=== PATIENT | female | born 1970 ===

== ENCOUNTER 2016-10-16 05:30 | Emergency (ER) | payer BC ==
[2016-10-16] MEDS ORDERED: Sodium Chloride 0.9% 10 ML Syringe FLUSH PRN (05:55)
[2016-10-16] MEDS ORDERED: Aspirin 81 MG Tab.Chew PO ONE (05:55)
--- NOTE | 2016-10-16 06:54 | EDM.PDOC ---
ED HPI GENERAL MEDICAL PROBLEM - General Chief Complaint: Chest Pain Stated Complaint: CHEST PAIN Time Seen by Provider: 10/16/16 05:43 Source of Information: Reports: Patient History Limitations: Reports: No Limitations - History of Present Illness INITIAL COMMENTS - FREE TEXT/NARRATIVE: The patient presents with left sided chest pain that started yesterday. It comes and goes. The pain is sharp at times. She has no fever, cough, congestion or runny nose. She has no history of [place]. She does not smoke. Last night she got a little short of breath with it and she got sweaty. She says the pain is mild now. Onset: Gradual Duration: Day(s): (Yesterday) Location: Reports: Chest Quality: Reports: Pressure Severity: Mild Improves with: Reports: None Worsens with: Reports: None Associated Symptoms: Reports: Chest Pain. Denies: Cough, Fever/Chills, Nausea/ Vomiting, Shortness of Breath Left Chest Pain Score (Numeric/FACES): 5 - Related Data Allergies Allergy/AdvReac Type Severity Reaction Status Date / Time alcohol Allergy Swelling Verified 10/16/16 05:39 Iodinated Contrast Media - Allergy Itching Verified 10/16/16 05:39 Oral and [Iodinated Contrast Media - IV Dye] Home Meds: Home Meds Lisinopril 20 mg PO DAILY 08/30/15 [History] metFORMIN HCl [Metformin HCl] 1,000 mg PO BID 08/30/15 [History] Dapagliflozin Propanediol [Farxiga] 10 mg PO DAILY 09/14/15 [History] Melatonin 80 mg PO BEDTIME 09/14/15 [History] Docusate Sodium [Colace] 100 mg PO BID cap 09/17/15 [Rx] Ibuprofen [Motrin] 600 mg PO Q4H PRN #30 tablet 09/17/15 [Rx] traMADol [Ultram] 50 mg PO ONCALL PRN 10/16/16 [History] Past Medical History HEENT History: Reports: Impaired Vision Other HEENT History: Wears glasses Cardiovascular History: Reports: Hypertension Other Respiratory History: Severe snoring Gastrointestinal History: Reports: GERD, Irritable Bowel Syndrome Other Gastrointestinal History: inflammed pancreas Genitourinary History: Reports: Urinary Incontinence Musculoskeletal History: Reports: Fracture Other Musculoskeletal History: hardware L arm Neurological History: Reports: Concussion Psychiatric History: Reports: Anxiety Endocrine/Metabolic History: Reports: Diabetes, Type II Other Hematologic History: elevated WBC Dermatologic History: Reports: Psoriasis - Past Surgical History GI Surgical History: Reports: Cholecystectomy Social & Family History - Tobacco Use Smoking Status *Q: Never Smoker Second Hand Smoke Exposure: No - Recreational Drug Use Recreational Drug Use: No ED ROS GENERAL - Review of Systems Review Of Systems: See Below Constitutional: Reports: No Symptoms HEENT: Reports: No Symptoms Respiratory: Reports: Shortness of Breath (Last night but non now) Cardiovascular: Reports: Chest Pain Endocrine: Reports: No Symptoms GI/Abdominal: Reports: No Symptoms : Reports: No Symptoms Musculoskeletal: Reports: No Symptoms ED EXAM, GENERAL - Physical Exam Exam: See Below Exam Limited By: No Limitations General Appearance: Alert, No Apparent Distress Ears: Normal External Exam Nose: Normal Inspection Head: Atraumatic, Normocephalic Neck: Normal Inspection Respiratory/Chest: No Respiratory Distress, Lungs Clear, Normal Breath Sounds Cardiovascular: Regular Rate, Rhythm, No Edema, No Murmur GI/Abdominal: Soft, Non-Tender, No Organomegaly, No Mass Back Exam: Normal Inspection Extremities: Normal Inspection EKG INTERPRETATION EKG Date: 10/16/16 Time: 05:36 Rhythm: NSR Rate (beats/min): 83 [place]: normal P-wave: present QRS: normal ST-T: normal QT: normal Course - Vital Signs Last Recorded V/S: Last Vital Signs Temp 97.2 F 10/16/16 05:41 Pulse 83 10/16/16 05:41 Resp 14 10/16/16 05:41 BP 111/82 10/16/16 05:41 Pulse Ox 98 10/16/16 05:41 - Orders/Labs/Meds Orders: Active Orders 24 hr Category Date Time Status Cardiac Monitoring [RC] . DIRECTED Care 10/16/16 05:55 Active EKG Documentation Completion [RC] STAT Care 10/16/16 05:56 Active Oxygen Therapy [RC] PRN Care 10/16/16 05:55 Active Peripheral IV Care [RC] . DIRECTED Care 10/16/16 05:56 Active Chest 1V Frontal [CR] Stat Exams 10/16/16 05:56 Taken Sodium Chloride 0.9% [Saline Flush] Med 10/16/16 05:55 Active 10 ml FLUSH ASDIRECTED PRN Peripheral IV Insertion Adult [OM.PC] Stat Oth 10/16/16 05:55 Ordered Medication Orders Sodium Chloride (Saline Flush) 10 ml FLUSH ASDIRECTED PRN PRN Reason: Keep Vein Open Last Admin: 10/16/16 06:00 Dose: 10 ml Labs: Laboratory Tests 10/16/16 10/16/16 Range/Units 05:45 05:45 WBC 13.09 H (3.98-10.04) K/mm3 RBC 4.91 (3.98-5.22) M/mm3 Hgb 14.8 (11.2-15.7) gm/L Hct 44.3 (34.1-44.9) % MCV 90.2 (79.4-94.8) fl MCH 30.1 (25.6-32.2) pg MCHC 33.4 (32.2-35.5) g/dl RDW Std Deviation 44.6 (36.4-46.3) fL Plt Count 393 H (182-369) K/mm3 MPV 9.4 (9.4-12.3) fl Neut % (Auto) 53.2 (34.0-71.1) % Lymph % (Auto) 37.1 (19.3-51.7) % [place] % (Auto) 7.6 (4.7-12.5) % Eos % (Auto) 1.5 (0.7-5.8) Baso % (Auto) 0.4 (0.1-1.2) % Neut # (Auto) 6.97 H (1.56-6.13) K/mm3 Lymph # (Auto) 4.86 H (1.18-3.74) K/mm3 Bucks # (Auto) 0.99 H (0.24-0.36) K/mm3 Eos # (Auto) 0.19 (0.04-0.36) K/mm3 Baso # (Auto) 0.05 (0.01-0.08) K/mm3 Sodium 137 (136-145) mEq/L Potassium 4.2 (3.5-5.1) mEq/L Chloride 103 (98-107) mEq/L Carbon Dioxide 25 (21-32) mEq/L Anion Gap 13.2 (5-15) BUN 9 (7-18) mg/dL Creatinine 0.6 (0.55-1.02) mg/dL Est Cr Clr Drug Dosing 97.95 mL/min Estimated GFR (MDRD) > 60 (>60) mL/min BUN/Creatinine Ratio 15.0 (14-18) Glucose 174 H (74-106) mg/dL Calcium 8.7 (8.5-10.1) mg/dL Total Bilirubin 0.5 (0.2-1.0) mg/dL AST 40 H (15-37) U/L ALT 91 H (14-59) U/L Alkaline Phosphatase 103 (46-116) U/L Troponin I < 0.017 (0.00-0.056) ng/mL Total Protein 7.9 (6.4-8.2) g/dl Albumin 2.9 L (3.4-5.0) g/dl Globulin 5.0 gm/dL Albumin/Globulin Ratio 0.6 L (1-2) Meds: Medications Generic Name Dose Route Start Last Admin Trade Name Freq PRN Reason Stop Dose Admin Sodium Chloride 10 ml 10/16/16 05:55 10/16/16 06:00 Saline Flush FLUSH 10 ml ASDIRECTED PRN Administration Keep Vein Open Discontinued Medications Generic Name Dose Route Start Last Admin Trade Name Freq PRN Reason Stop Dose Admin Aspirin 324 mg 10/16/16 05:55 10/16/16 06:01 Aspirin PO 10/16/16 05:56 324 mg ONETIME ONE Administration - Re-Assessments/Exams Free Text/Narrative Re-Assessment/Exam: 10/16/16 06:54 I ordered aspirin, EKG, CXR and labs. Her EKG shows a NSR with no acute changes. Her CXR shows nothing acute. 10/16/16 07:07 Her WBC is elevated at 13.09. Her glucose is elevated at 174. Her AST is elevated at 40. Her ALT is elevated at 91. Her troponin is negative. This does not appear to be her heart. Departure - Departure Time of Disposition: 07:10 Disposition: Home, Self-Care 01 Condition: good Clinical Impression: Atypical chest pain Referrals: Caitlin Adan PA [Primary Care Provider] - 2 Days Forms: ED Department Discharge, Return to Work/School Form Additional Instructions: Take tylenol or motrin for the pain. Follow up with Caitlin in a couple days. Please return if you are worse. - My Orders Last 24 Hours: My Active Orders 10/16/16 05:55 Cardiac Monitoring [RC] . DIRECTED Oxygen Therapy [RC] PRN Sodium Chloride 0.9% [Saline Flush] 10 ml FLUSH ASDIRECTED PRN Peripheral IV Insertion Adult [OM.PC] Stat 10/16/16 05:56 EKG Documentation Completion [RC] STAT Peripheral IV Care [RC] . DIRECTED Chest 1V Frontal [CR] Stat - Assessment/Plan Last 24 Hours: My Active Orders 10/16/16 05:55 Cardiac Monitoring [RC] . DIRECTED Oxygen Therapy [RC] PRN Sodium Chloride 0.9% [Saline Flush] 10 ml FLUSH ASDIRECTED PRN Peripheral IV Insertion Adult [OM.PC] Stat 10/16/16 05:56 EKG Documentation Completion [RC] STAT Peripheral IV Care [RC] . DIRECTED Chest 1V Frontal [CR] Stat
[2016-10-16 07:48] VITALS: BP 112/76
--- NOTE | 2016-10-16 11:29 | CR ---
Chest: Portable view of the chest was obtained. Comparison: Previous chest x-ray of 06/13/16. Heart size and mediastinum are normal. Lungs are clear. Bony structures are grossly intact. Impression: 1. Nothing acute is seen on portable chest x-ray. No significant change is seen from prior chest x-ray. Diagnostic code #1
== END 2016-10-16 07:35 | disposition home or self-care (01) ==
LOC: JD.ED 05:30
DX: R07.89 Other chest pain (principal); R06.02 Shortness of breath; R61 Generalized hyperhidrosis; E11.9 Type 2 diabetes mellitus without complications; R06.83 Snoring; I10 Essential (primary) hypertension; Z90.49 Acquired absence of other specified parts of digestive tract; Z91.040 Latex allergy status
CPT/HCPCS: 36415; 71010; 80053; 84484; 85025; 93005; 99285; A9270; J7050; 99284

== ENCOUNTER 2018-02-12 06:19 | Day surgery (SDC) | payer BC ==
[~2018-02-12 06:19] MED LIST: Lactated Ringers 1,000 ML IV SCH; Lidocaine 1%/Sod Bicarbonate in NS 8.4% 1 ML Syringe IDERM PRN; Sodium Chloride 0.9% 10 ML Syringe FLUSH PRN
[2018-02-12] MEDS ORDERED: fentaNYL 100 MCG/2 ML SDV ONE (06:42)
[2018-02-12] MEDS ORDERED: Midazolam 1 MG/ML 2 ML SDV ONE (06:42)
[2018-02-12] MEDS ORDERED: Ketamine 500 mg/10 ML MDV ONE (06:42)
[2018-02-12] MEDS ORDERED: Propofol 200 MG/20 ML SDV ONE (06:42)
[2018-02-12] MEDS ORDERED: Lidocaine 1% 4 ML ONE (06:44)
[2018-02-12] MEDS ORDERED: Lidocaine 1% 30 ML SDV ONE (06:51)
[2018-02-12] MEDS ORDERED: Triamcinolone Acetonide 40 MG/ML 1 ML MDV ONE (06:51)
--- NOTE | 2018-02-12 07:04 | PCM.PREANE ---
Preanesthetic Assessment - Anesthesia/Transfusion/Family Hx Anesthesia History: Prior Anesthesia Without Reaction Family History of Anesthesia Reaction: No - Review of Systems General: No Symptoms Pulmonary: No Symptoms Cardiovascular: No Symptoms, Other (Hypertension) Gastrointestinal: No Symptoms Neurological: Numbness, Tingling (Hands) Other: Reports: None (Obesity), Diabetes (Blood glucose 106, Type II. ), Anxiety - Physical Assessment O2 Sat by Pulse Oximetry: 95 Respiratory Rate: 18 Vital Signs: Last Vital Signs Temp 36.4 C 02/12/18 06:30 Pulse 86 02/12/18 06:30 Resp 18 02/12/18 06:30 BP 120/86 02/12/18 06:30 Pulse Ox 95 02/12/18 06:30 Weight: 106.141 kg ASA Class: 2 Mental Status: Alert & Oriented x3 Airway Class: Mallampati = 1 Dentition: Reports: Normal Dentition Thyro-Mental Finger Breadths: 3 Mouth Opening Finger Breadths: 3 ROM/Head Extension: Full Lungs: Clear to Auscultation, Normal Respiratory Effort Cardiovascular: Regular Rate, Regular Rhythm - Lab Values: Laboratory Last Values POC Glucose 106 mg/dL (70-105) H 02/12/18 06:44 MRSA (PCR) Negative 02/06/18 10:25 - Allergies Allergies/Adverse Reactions: Allergies Allergy/AdvReac Type Severity Reaction Status Date / Time alcohol Allergy Swelling Verified 02/11/18 16:02 - Acknowledgements Anesthesia Type Planned: MAC Pt an Appropriate Candidate for the Planned Anesthesia: Yes Alternatives and Risks of Anesthesia Discussed w Pt/Guardian: Yes Pt/Guardian Understands and Agrees with Anesthesia Plan: Yes PreAnesthesia Questionnaire HEENT History: Reports: Impaired Vision, Otitis Media Other HEENT History: Wears glasses Cardiovascular History: Reports: High Cholesterol, Hypertension Other Respiratory History: Severe snoring Gastrointestinal History: Reports: GERD, Helicobacter Pylori, Irritable Bowel Syndrome Other Gastrointestinal History: ELEVATED LFTS Genitourinary History: Reports: Urinary Incontinence NURSING ASSOC History: Reports: , Other (See Below) Other OB/BYN History: BACTERIAL VAGINOSIS, CYSTOCELE, DYSMENORRHEA, MENORRHAGIA , RECTOCELE, , VAGINAL DRYNESS Musculoskeletal History: Reports: Fracture Other Musculoskeletal History: hardware L arm Neurological History: Reports: Concussion, Other (See Below) Other Neuro History: DIZZINESS, SYNCOPE Psychiatric History: Reports: Anxiety Endocrine/Metabolic History: Reports: Diabetes, Type II, Obesity/BMI 30+ Other Hematologic History: elevated WBC Immunologic History: Reports: None Oncologic (Cancer) History: Reports: Breast Dermatologic History: Reports: Psoriasis Other Dermatologic History: COLD SORES - Past Surgical History Head Surgeries/Procedures: Reports: None HEENT Surgical History: Reports: Other (See Below) Other HEENT Surgeries/Procedures: BLEPHAROPLASTY Cardiovascular Surgical History: Reports: None Respiratory Surgical History: Reports: None GI Surgical History: Reports: Cholecystectomy, Hernia, Inguinal, Other (See Below) Other GI Surgeries/Procedures: SPLENECTOMY Female Surgical History: Reports: Breast Biopsy, Hysterectomy, Oophorectomy Male Surgical History: Reports: None Endocrine Surgical History: Reports: None Neurological Surgical History: Reports: None Oncologic Surgical History: Reports: None Dermatological Surgical History: Reports: None - SUBSTANCE USE Smoking Status *Q: Never Smoker Recreational Drug Use History: No - HOME MEDS Home Medications: Home Meds Lisinopril 20 mg PO DAILY 08/30/15 [History] metFORMIN HCl [Metformin HCl] 1,000 mg PO BID 08/30/15 [History] Dapagliflozin Propanediol [Farxiga] 10 mg PO DAILY 09/14/15 [History] Melatonin 80 mg PO BEDTIME 09/14/15 [History] Cholecalciferol (Vitamin D3) [Vitamin D3] 6,000 unit PO DAILY 02/11/18 [History] Dulaglutide [Trulicity] 1.5 ml SQ TU 02/11/18 [History] Escitalopram [Lexapro] 20 mg PO DAILY 02/11/18 [History] Fluticasone Propionate [Flonase] 1 spray NASBOTH DAILY 02/11/18 [History] L.acidoph,Paracasei, B.lactis [Probiotic] 1 cap PO DAILY 02/11/18 [History] Methotrexate Sodium [Methotrexate] 20 mg PO WE 02/11/18 [History] atorvaSTATin [Lipitor] 10 mg PO BEDTIME 02/11/18 [History] hydrOXYzine HCl [hydrOXYzine] 25 - 50 mg PO BEDTIME 02/11/18 [History] valACYclovir HCl [valACYclovir] 1 gm PO BID PRN 02/11/18 [History] Acetaminophen/HYDROcodone [[place] 325-5 MG] 1 - 2 tab PO Q6H PRN #15 tablet 02/12 [Rx] - CURRENT (IN HOUSE) MEDS Current Meds: Current Medications Lactated Ringer's (Ringers, Lactated) 1,000 mls @ 125 mls/hr IV ASDIRECTED ANASTASIIA Stop: 02/12/18 23:00 Lidocaine/Sodium Bicarbonate (Buffered Lidocaine 1% In Ns 8.4%) 0.25 ml IDERM ONETIME PRN PRN Reason: Prior to IV Start Stop: 02/12/18 18:00 Sodium Chloride (Saline Flush) 10 ml FLUSH ASDIRECTED PRN PRN Reason: Keep Vein Open Stop: 02/12/18 18:00 Discontinued Medications Bupivacaine HCl (Marcaine 0.25%) Confirm Administered Dose 30 ml .ROUTE .STK- MED ONE Stop: 02/12/18 06:52 Fentanyl (Sublimaze) Confirm Administered Dose 100 mcg .ROUTE .STK-MED ONE Stop: 02/12/18 06:43 Lidocaine HCl (Xylocaine-Mpf 1%) Confirm Administered Dose 4 mls @ as directed .ROUTE .STK-MED ONE Stop: 02/12/18 06:45 Ketamine HCl (Ketalar) Confirm Administered Dose 500 mg .ROUTE .STK-MED ONE Stop: 02/12/18 06:43 Lidocaine HCl (Xylocaine-Mpf 1%) Confirm Administered Dose 30 ml .ROUTE .STK- MED ONE Stop: 02/12/18 06:52 Midazolam HCl (Versed 1 Mg/Ml) Confirm Administered Dose 2 mg .ROUTE .STK-MED ONE Stop: 02/12/18 06:43 Propofol (Diprivan 20 Ml) Confirm Administered Dose 600 mg .ROUTE .STK-MED ONE Stop: 02/12/18 06:43 Triamcinolone Acetonide (Kenalog-40) Confirm Administered Dose 40 mg .ROUTE .STK -MED ONE Stop: 02/12/18 06:52
[2018-02-12] MEDS: Bupivacaine 0.25% 30 ML SDV ONE ×2 (07:28→07:35)
[2018-02-12] MEDS ORDERED: Acetaminophen/HYDROcodone 325-5 MG Tab PO ONE (08:32)
[2018-02-12 09:30] VITALS: BP 136/86
--- NOTE | 2018-02-12 13:27 | PCM48HPAN ---
Post Anesthesia Note - EVALUATION WITHIN 48HRS OF ANESTHETIC Vital Signs in Normal Range: Yes Patient Participated in Evaluation: Yes Respiratory Function Stable: Yes Airway Patent: Yes Cardiovascular Function Stable: Yes Hydration Status Stable: Yes Pain Control Satisfactory: Yes Nausea and Vomiting Control Satisfactory: Yes Mental Status Recovered: Yes
--- NOTE | 2018-02-23 07:15 | PCM.OPNOTE ---
- General Post-Op/Procedure Note Date of Surgery/Procedure: 02/12/18 Operative Procedure(s): right carpal tunnel release with left carpal tunnel injection Pre Op Diagnosis: bilateral median nerve compression neuropathy Post-Op Diagnosis: Same Anesthesia Technique: Local, MAC Primary Surgeon: Arnulfo Donahue Anesthesia Provider: Mary Watkins Larry Operator: Mariam Farley EBOzzy in mLs: 5 Complications: None Condition: Good
--- NOTE | 2018-02-23 13:19 | OR ---
DATE OF OPERATION: 02/12/2018 SURGEON: Arnulfo Donahue MD OPERATION PERFORMED: Right carpal tunnel release with left carpal tunnel injection. PREOPERATIVE DIAGNOSIS: Bilateral median nerve compression neuropathy. POSTOPERATIVE DIAGNOSIS: Bilateral median nerve compression neuropathy. ANESTHESIA: Local MAC. DIRECTOR TRADING PROVIDER: Marquita Galeas. DIRECTOR TRADING: Mariam Farley PA-C. ESTIMATED BLOOD LOSS: 5 mL. COMPLICATIONS: None. CONDITION: Stable, DESCRIPTION OF PROCEDURE: The patient was identified in the preop holding area. Proper site was marked and identified by the surgeon. The patient was taken back to the operating theater, where after adequate anesthesia, the patient's right upper extremity was sterilely prepped and draped in the usual sterile fashion. OR time-out was performed. The patient did not receive antibiotic and is not indicated for soft tissue hand procedure. At this time, Esmarch was used to the right upper extremity and the tourniquet on the forearm. Incision was made using Puentes's cardinal line and ulnar border of the fourth digit after 1% lidocaine and 0.25% Marcaine without epinephrine were used to anesthetize the incisional site as well as the palmar cutaneous branch of the median nerve. Blunt dissection was taken down to the palmar cutaneous fascia. Palmar cutaneous fascia was incised with a [place] blade. This was taken down to the transverse carpal ligament. Transverse carpal ligament was identified and was resected with a [place] blade making sure to protect the median nerve. At this time, it was found to be adequately resected all the way distally and attention was turned proximally. A tenotomy scissor was used to release the superficial forearm fascia as well as the transverse carpal ligament proximally making sure to keep the tips ulnar to protect the palmar cutaneous branch of the median nerve. At this time, it was found to be adequately released both proximally and distally. Adequate saline was irrigated through the wound. 4-0 nylon sutures were used for closure of the skin. After this was completed, sterile soft dressing was applied and then 1 mL of 40 mg of Kenalog and 2 mL of 0.25% Marcaine were injected into the left carpal tunnel. The patient tolerated both procedures well and was sent to PACU in stable condition. MMODAL /[id number]
== END 2018-02-12 09:20 | disposition home or self-care (01) ==
LOC: JD.SDS 06:19
PROVIDERS: ATTEND Orthopaedic Surgery
DX: G56.03 Carpal tunnel syndrome, bilateral upper limbs (principal); G56.13 Other lesions of median nerve, bilateral upper limbs; I10 Essential (primary) hypertension; E11.65 Type 2 diabetes mellitus with hyperglycemia; E66.01 Morbid (severe) obesity due to excess calories; Z68.41 Body mass index [BMI] 40.0-44.9, adult; E78.2 Mixed hyperlipidemia; K21.9 Gastro-esophageal reflux disease without esophagitis; E78.5 Hyperlipidemia, unspecified; F41.1 Generalized anxiety disorder; Z79.51 Long term (current) use of inhaled steroids; Z79.84 Long term (current) use of oral hypoglycemic drugs; Z79.899 Other long term (current) drug therapy; Z91.048 Other nonmedicinal substance allergy status
CPT/HCPCS: 20526; 64721; 82962; 87641; A9270; J2250; J2704; J3010; J3301; J3490; J7120; 01810; J2001

== ENCOUNTER 2018-10-03 07:18 | Emergency (ER) | payer MEDICAID ==
[2018-10-03 07:38] VITALS: BP 97/66
--- NOTE | 2018-10-03 08:42 | EDM.PDOC ---
ED HPI GENERAL MEDICAL PROBLEM - General Chief Complaint: Upper Extremity Injury/Pain Stated Complaint: RIGHT ARM PAIN Time Seen by Provider: 10/03/18 08:15 Source of Information: Reports: Patient, RN Notes Reviewed History Limitations: Reports: No Limitations - History of Present Illness INITIAL COMMENTS - FREE TEXT/NARRATIVE: The patient states that she was diagnosed with breast cancer in early 2017, undergoing bilateral mastectomies in 2017. She underwent chemotherapy from March 2018 through July 2018, then started radiation therapy to the right breast area on a daily basis in August 2018, until present. 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 She states that she also developed right upper extremity lymphedema in June 2018. The patient states that she fell onto her chest on 09/20/2018. She did not injure her right upper extremity in the fall. She then developed right hand and wrist weakness 3 days ago. Pain began in the right wrist yesterday, and has since progressed up to the right axilla. She has felt weak in her right elbow and right shoulder since yesterday. The patient states that she has had posterior neck pain on and off for about the past 1-1/2 months. The patient's PCP is Caitlin Adan. Her Oncologist is Dr. Luigi Krishna. Her Radiation Oncologist is Dr. Chris Harris. Her Kick Boxer is Dr. Maximilian Harding. Right Arm Pain Score (Numeric/FACES): 10 - Related Data Allergies Allergy/AdvReac Type Severity Reaction Status Date / Time alcohol Allergy Swelling Verified 10/03/18 07:27 Home Meds: Home Meds Lisinopril 20 mg PO DAILY 08/30/15 [History] metFORMIN HCl [Metformin HCl] 1,000 mg PO BID 08/30/15 [History] Dapagliflozin Propanediol [Farxiga] 10 mg PO DAILY 09/14/15 [History] Melatonin 40 mg PO BEDTIME 09/14/15 [History] Dulaglutide [Trulicity] 1.5 ml SQ TU 02/11/18 [History] Escitalopram [Lexapro] 20 mg PO DAILY 02/11/18 [History] L.acidoph,Paracasei, B.lactis [Probiotic] 1 cap PO DAILY 02/11/18 [History] Methotrexate Sodium [Methotrexate] 20 mg PO WE 02/11/18 [History] atorvaSTATin [Lipitor] 10 mg PO BEDTIME 02/11/18 [History] hydrOXYzine HCl [hydrOXYzine] 25 - 50 mg PO BEDTIME 02/11/18 [History] valACYclovir HCl [valACYclovir] 1 gm PO BID PRN 02/11/18 [History] Past Medical History HEENT History: Reports: Impaired Vision Other HEENT History: wears eyeglasses Cardiovascular History: Reports: High Cholesterol, Hypertension Gastrointestinal History: Reports: GERD Genitourinary History: Reports: Urinary Incontinence (resolved after bladder suspension surgery) 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: Musculoskeletal History: Reports: Fracture (left forearm and humerus) Neurological History: Reports: Neuropathy, Peripheral (2 CTx) Psychiatric History: Reports: Anxiety, Depression Endocrine/Metabolic History: Reports: Diabetes, Type II, Obesity/BMI 30+ Oncologic (Cancer) History: Reports: Breast (Dx'd 2017) - Infectious Disease History Infectious Disease History: Reports: Chicken Pox - Past Surgical History GI Surgical History: Reports: Cholecystectomy (2000), Hernia, Inguinal (right), Other (See Below) (Splenectomy) Female Surgical History: Reports: Hysterectomy (partial), Oophorectomy ( unilateral), Other (See Below) (Bladder suspension) Musculoskeletal Surgical History: Reports: Carpal Tunnel (right, Dec 2017), ORIF (left humerus) Oncologic Surgical History: Reports: Mastectomy (bilateral, 2017) Social & Family History - Tobacco Use Smoking Status *Q: Never Smoker Second Hand Smoke Exposure: No - Caffeine Use Caffeine Use: Reports: Coffee Other Caffeine Use: has not recently. - Alcohol Use Alcohol Use History: No - Recreational Drug Use Recreational Drug Use: No - Living Situation & Occupation Living situation: Reports: ( was deported), with Family (Son) Occupation: Disabled (RN) Review of Systems - Review of Systems Review Of Systems: ROS reveals no pertinent complaints other than HPI. ED EXAM, GENERAL - Physical Exam Exam: See Below Exam Limited By: No Limitations General Appearance: Alert, WD/WN, No Apparent Distress Eye Exam: Bilateral Eye: EOMI, Normal Inspection Ears: Normal External Exam, Hearing Grossly Normal Nose: Normal Inspection Throat/Mouth: Normal Inspection, Normal Lips, Normal Voice, No Airway Compromise Head: Atraumatic, Normocephalic Neck: Normal Inspection, Supple, Non-Tender, Full Range of Motion, Other (No significant modification of right approximate symptoms with turning the head far to the right or left, to bring her chin to her chest, extending her neck fully, or with cervical compression.). No: Tender Midline Respiratory/Chest: No Respiratory Distress, Lungs Clear, Normal Breath Sounds, No Accessory Muscle Use, Other (S/P bilateral masectomies) Cardiovascular: Normal Peripheral Pulses, Regular Rate, Rhythm, No Edema, No Gallop, No JVD, No Murmur, No Rub Peripheral Pulses: 4+: Radial (L), Radial (R) GI/Abdominal: Normal Bowel Sounds, Soft, Non-Tender, No Organomegaly, No Distention, No Abnormal Bruit, No Mass, Other (Obese) (Female) Exam: Deferred Rectal (Female) Exam: Deferred Back Exam: Normal Inspection, Full Range of Motion, NT Extremities: Normal Capillary Refill, Other (No visible abnormality to the right upper extremity, such as swelling, erythema, ecchymosis, or abrasion. There is significant tenderness to palpation of the right wrist. There is no tenderness to palpation of the right forearm, but there is moderate tenderness to palpation of the right elbow. No tenderness to palpation of the right upper arm, but there is mild tenderness to palpation of the right shoulder area. Pain is induced in the right wrist with PROM, and the patient is unable to perform AROM secondary to pain. The patient has FROM to the right elbow, primarily with passive extension and flexion, also limited with AROM due to pain. There is limited AROM to the right shoulder, also due to pain, but normal PROM,) Neurological: Alert, Oriented, Normal Cognition, No Motor/Sensory Deficits Psychiatric: Normal Affect Skin Exam: Warm, Dry, Intact, Normal Color, No Rash Course - Vital Signs Last Recorded V/S: Last Vital Signs Temp 35.8 C 10/03/18 07:20 Pulse 76 10/03/18 07:20 Resp 18 10/03/18 07:20 BP 97/66 10/03/18 07:20 Pulse Ox 100 10/03/18 07:20 - Orders/Labs/Meds Meds: Medications Discontinued Medications Generic Name Dose Route Start Last Admin Trade Name Freq PRN Reason Stop Dose Admin Ibuprofen 600 mg 10/03/18 08:50 10/03/18 09:00 Motrin PO 10/03/18 08:51 600 mg ONETIME ONE Administration - Re-Assessments/Exams Free Text/Narrative Re-Assessment/Exam: 10/03/18 08:42 With discomfort progressing from the wrist to the elbow to the shoulder, I suspected that the patient might be suffering from cervical radiculopathy, however, on examination, she is very tender to the wrist and elbow, with mild tenderness to the right shoulder. She is not tender to the forearm or upper arm - just to the joints. Cervical radiculopathy may cause pain in the extremity, but it would not cause tenderness. The patient therefore appears to be suffering from polyarthritis. The cause is unclear. Ordinarily, I would prescribe a short course of prednisone, however, given the patient's underlying medical conditions, I don't believe it would be prudent for me to do so. The patient tells me that she has been able to take NSAIDs, such as ibuprofen, in the past, therefore I'm going to recommend that she start taking over-the- counter ibuprofen, 600 mg every 8 hours. If the patient requires something stronger, such as prednisone, she would need to have that cleared by her Oncologist. Departure - Departure Time of Disposition: 08:46 Disposition: Home, Self-Care 01 Condition: Good Clinical Impression: Polyarthritis - Discharge Information *PRESCRIPTION DRUG MONITORING PROGRAM REVIEWED*: Not Applicable *COPY OF PRESCRIPTION DRUG MONITORING REPORT IN PATIENT SHY: Not Applicable Instructions: Arthritis, [id number] Referrals: Caitlin Adan PA [Primary Care Provider] - Luigi Krishna MD [Ordering Only Provider] - Chris Harris MD [Ordering Only Provider] - Maximilian Harding MD [Ordering Only Provider] - Forms: ED Department Discharge Additional Instructions: You were seen in the emergency room for pain extending from your wrist to your elbow to your shoulder over the past few days. On examination, you have tenderness primarily to your wrist, but also to your elbow and shoulder, indicating that you have arthritis. We recommend that you start taking [id number] ibuprofen, 3 tablets (600 mg ) every 8 hours, with food. Given your complicated medical condition, we strongly recommend that you contact the office of your Oncologist, Dr. Luigi Krishna, first thing Friday morning , 10/05/2018, to see if he is okay with your taking ibuprofen, or if he would prefer you to be on prednisone. If any other problems, please do not hesitate to return to the ER.
[2018-10-03] MEDS ORDERED: Ibuprofen 600 MG Tab PO ONE (08:50)
== END 2018-10-03 09:05 | disposition home or self-care (01) ==
LOC: JD.ED 07:18
DX: M13.0 Polyarthritis, unspecified (principal); Z85.3 Personal history of malignant neoplasm of breast; E78.00 Pure hypercholesterolemia, unspecified; I10 Essential (primary) hypertension; K21.9 Gastro-esophageal reflux disease without esophagitis; F41.9 Anxiety disorder, unspecified; F32.9 Major depressive disorder, single episode, unspecified; E11.9 Type 2 diabetes mellitus without complications; Z79.84 Long term (current) use of oral hypoglycemic drugs; Z79.899 Other long term (current) drug therapy; Z88.8 Allergy status to other drugs, medicaments and biological substances
CPT/HCPCS: 99283; A9270; 99282